=== PATIENT | female | born 1940 | race Caucasian/White ===

== ENCOUNTER → 2023-05-13 13:55 | Outpatient (REF) | payer OTHER, SELFPAY | LOC: RAD 13:55 | PROVIDERS: ATTENDING PHYSICIAN Internal Medicine Critical Care Medicine; FAMILY PHYSICIAN Family Medicine | DX: Z86.718 Personal history of other venous thrombosis and embolism (principal) | CPT/HCPCS: 93970 ==

== ENCOUNTER → 2024-02-03 12:58 | Outpatient (REF) | payer OTHER, SELFPAY | LOC: WDC 12:58 | PROVIDERS: ATTENDING PHYSICIAN Family Medicine | DX: Z12.31 Encounter for screening mammogram for malignant neoplasm of breast (principal); Z78.0 Asymptomatic menopausal state | CPT/HCPCS: 77063; 77067; 77080 ==

== ENCOUNTER → 2024-03-04 10:31 | Outpatient (REF) | payer OTHER, SELFPAY | LOC: HWRAD 10:31 | PROVIDERS: ATTENDING PHYSICIAN Specialist; FAMILY PHYSICIAN Family Medicine | DX: M25.512 Pain in left shoulder (principal) | CPT/HCPCS: 73200 ==

== ENCOUNTER → 2024-03-23 10:11 | Outpatient (REF) | payer OTHER, SELFPAY | LOC: HWRAD 10:11 | PROVIDERS: ATTENDING PHYSICIAN Internal Medicine Critical Care Medicine; FAMILY PHYSICIAN Family Medicine | DX: Z86.718 Personal history of other venous thrombosis and embolism (principal) | CPT/HCPCS: 93970 ==

== ENCOUNTER → 2024-04-04 09:00 | Outpatient (REF) | payer OTHER, SELFPAY ==
[2024-04-04 14:01] LABS: Hematocrit 32.7 % (37.0-47.0); Hemoglobin 10.5 g/dL (12.0-16.0); Mean Corp Hgb Conc. 32.1 g/dL (33.0-37.0); Mean Corpuscular Hgb 27.5 pg (27.0-31.0); Mean Corpuscular Volume 85.6 fL (81.0-99.0); Mean Platelet Volume 12.2 fL (7.4-10.4); Platelet Count 175 10^3/uL (130-400); Red Blood Cell Count 3.82 10^6/uL (4.20-5.40); Red Cell Dist. Width 13.7 % (11.5-14.5); White Blood Cell Count 5.9 10^3/uL (4.8-10.8)
[2024-04-04 14:15] LABS: ALT (SGPT) 58 U/L (0-35); AST (SGOT) 45 U/L (14-36); Albumin 4.1 g/dl (3.5-5.0); Alkaline Phosphatase 46 U/L (38-126); Blood Urea Nitrogen 20 mg/dl (7-17); Calcium 9.4 mg/dl (8.4-10.2); Carbon Dioxide 22 mmol/L (22-30); Chloride 97 mmol/L (98-107); Glucose 207 mg/dl (70-99); Potassium 4.9 mmol/L (3.5-5.1); Sodium 130 mmol/L (135-145); Total Bilirubin 0.3 mg/dl (0.2-1.3); Total Protein 7.8 g/dl (6.3-8.2); eGFR > 60.00
[2024-04-04 14:39] LABS: Glycohemoglobin (HgbA1c) 8.3 % (4.0-5.6)
--- NOTE | 2024-04-05 11:20 | W.PN.UPDATE ---
Update Note
Progress Note Update
HgbA1c 8.3--spoke to patient -she will speak to PCP today at visit re medication adkustments--she will adher to diet control.
Hyponatremia-add salt to diet and fluid restrict-advised
Anemia-improved from baseline.
== END ==
LOC: SDSPAT 09:00
PROVIDERS: ATTENDING PHYSICIAN Specialist; FAMILY PHYSICIAN Family Medicine; OTHER PHYSICIAN Physician Assistant Medical; REFERRING PHYSICIAN Internal Medicine Critical Care Medicine
DX: M25.512 Pain in left shoulder (principal)
CPT/HCPCS: 36415; 80053; 83036; 85027; 86850; 86900; 86901; 87070; 93005

== ENCOUNTER 2024-05-01 01:10 | Emergency (ER) | payer OTHER, SELFPAY ==
[2024-05-01 01:11] VITALS: BP 176/84
[2024-05-01 01:13] VITALS: BP 176/84; BMI 30.3
[2024-05-01 02:00] VITALS: BP 162/65
[2024-05-01 03:44] VITALS: BP 173/77
[2024-05-01 04:00] VITALS: BP 158/71
--- NOTE | 2024-05-01 04:29 | ED.MUSCINJ ---
HPI-Injury
General
Chief Complaint: Fall
Source: patient and ambulance crew
Exam Limitations: none
Time Seen by Provider: 05/01/24 03:35
Nursing documentation reviewed up to this point in time: agreed with
History of Present Illness-Injury
Initial Injury comments:
Pleasant 84-year-old female brought in by EMS from her home after tripping and falling into her sewing machine. She struck the right side of her back as well as her left hip. She was able to ambulate. She currently has no hip pain. She is on
Eliquis but denies any head trauma or loss of consciousness. She states that her low back is the only thing that causes her pain. Denies chest pain or shortness of breath.
Past History
Past History
ED Past Medical History: GERD, HTN, Hypercholesterolemia, NIDDM, Hypothyroidism and Other (Anemia, hyponatremia)
ED Past Surgical History: Gynecological (Hysterectomy), Orthopedic (Bilateral hip and knee replacement, left distal femur fracture repair December 2020) and Urological (Partial nephrectomy 2017)
Social History
Tobacco: Non-smoker
Alcohol: None
Personal:
Living: with family
Employment: Retired
Family History
Family History: Other (Noncontributory)
Skin Exam
Abrasion
Middle Distal Back:
Description of abrasion: superfical/clean
Phy Exam
General Physical Exam
General Presentation: well appearing and mild distress
General age: appears stated age
General Skin: warm
General Habitus: normal
General Mental: alert
General Hydration: appears well hydrated
ENT Exam
ENT Exam: EOMI, pharynx normal, neck supple and normocephalic
Eye Exam
Eye Exam: PERRL, cornea clear and conjunctiva normal
Cardiovascular Exam
Cardiovascular Exam: regular rate/rhythm
Pulmonary Exam
Pulmonary Exam: lungs clear, no respiratory distress, no rales, no crackles, no rhonchi, no stridor, no wheezing and no cough
Gastrointestinal Exam
Gastrointestinal Exam: normal bowel sounds, non tender, soft, no organomegaly, no pulsatile mass and non distended
Neurological Exam
Neurological Exam: alert, oriented x3, no motor deficits and speech normal
Musculoskeletal Exam
Musculoskeletal Exam: full ROM and back pain (Tenderness around the abrasion with some swelling)
Skin Exam
Skin Exam: normal color, warm/dry, no rash and no petechia
Psychiatric Exam
Psychiatric Exam: normal mood/affect
Injury Course
Orders/Labs/Results
Orders:
Orders
05/01/24 02:08
Ribs, Right 3 View W/PA Chest [CR Ribs-right 3 Vw W/pa Chest*] Urgent
Comment:
Reason For Exam: fall
05/01/24 03:45
CT Lumbar Spine W/o Iv Contras Urgent
Comment:
Reason For Exam: fall
*Critical Care Note
Total Time (30-74mins, 75-104mins- exclusive of procedures): Not Applicable
Update Note
Update Note:
CT lumbar spine without IV contrast
IMPRESSION:
No acute osseous trauma. Chronic L1 vertebral body height loss unchanged from prior CT in 2019. Similar chronic height loss of T12. Multilevel degeneration. Bone demineralization.
Finalized at 4:35 AM EST
ED Attending Note
-
Portions of this chart may have been created with voice recognition software.� Occasional wrong word or��sound alike� substitutions may have occurred due to the inherent limitations of voice recognition software.
Discharge Plan
Departure
Patient Disposition: Home (Routine Discharge)
Date of Disposition: 05/01/24
Time of Disposition: 04:49
Patient with high blood pressure during this ER visit?: Yes
Discharge Problem:
Fall, Back pain
Instructions: Preventing falls in adults, How to use an incentive spirometer, BLOOD PRESSURE
Prescriptions:
No Action
levothyroxine [Levoxyl] 125 MCG tablet
125 mcg PO DAILY
omeprazole 20 MG capsule,delayed release(DR/EC)
20 mg PO DAILY
simvastatin 20 MG tablet
20 mg PO QPM
losartan 100 MG tablet
100 mg PO DAILY
metformin 500 MG tablet extended release 24 hr
1,000 mg PO BID Qty: 60 0RF
mupirocin 2 % ointment
1 applic topical BID Qty: 1 0RF
nateglinide 60 mg Tablet
60 mg PO TID
Eliquis 2.5 mg Tablet
2.5 mg PO BID
nitrofurantoin 100 mg Capsule
100 mg PO DAILY
doxycycline hyclate 100 mg capsule
100 mg PO BID Qty: 10 0RF
Rx Instructions:
Take with probiotic--POST-OP
tramadol 50 mg tablet
50 mg PO Q6H PRN (Reason: 1 tab moderate pain, 2 if severe) Qty: 30 0RF
Rx Instructions:
ongoing therapy
gabapentin 300 mg capsule
300 mg PO HS Qty: 10 0RF
Referrals:
Inna Baires MD [Family Provider] -
Activity Restrictions/Additional Instructions:
Tylenol or Motrin for pain
It was a pleasure meeting you and taking part in your care. We hope for your continued healing and wellness.
Please read discharge instructions in their entirety. However, they are for general education and may not describe your exact diagnosis at discharge. Information on your ER visit and medical conditions were discussed with you along with appropriate
follow up information...
If indicated, please take your medications as instructed and indicated on discharge paperwork.
Please schedule a follow up appointment as directed. Call to schedule an appointment
Please return to the emergency department with ANY change in, persisting, or worsening of symptoms. If any of your symptoms do not improve, or persist, or become more severe within 6-12 hours, please return to the emergency department for further
care.
Please return to the emergency department if you develop a headache, neck pain/stiffness, fever greater than 100.4F, chest pain, shortness of breath, persistent nausea, vomiting, slurred speech, difficulty walking, numbness/tingling, weakness, signs
of infection or any other symptoms that are worrisome to you.
If you have any questions or concerns please do not hesitate to call the Hospital at or E-mail me directly at [email or web address]
Interventions
Interventions:
*Risk Screen - Suicide Last Done: 05/01/24 01:13
*General Assessment Last Done: 05/01/24 01:13
*Neglect/Abuse Screening Last Done: 05/01/24 01:13
ED- Fall Risk Assessment Last Done: 05/01/24 02:00
*ED COVID-19 Vaccine History Last Done: 05/01/24 01:13
ED-Musculoskeletal Assessment Last Done: 05/01/24 02:00
ED- Neurological Assessment Last Done: 05/01/24 02:00
ED-Skin Assessment Last Done: 05/01/24 02:00
Discharge Date and Time
Print Language: [id number]
== END 2024-05-01 07:11 | disposition home or self-care (01) ==
LOC: EMR 01:10
PROVIDERS: EMERGENCY PHYSICIAN Student in an Organized Health Care Education/Training Program; FAMILY PHYSICIAN Family Medicine
DX: S30.810A Abrasion of lower back and pelvis, initial encounter (principal); W01.198A Fall on same level from slipping, tripping and stumbling with subsequent striking against other object, initial encounter; I10 Essential (primary) hypertension; E78.00 Pure hypercholesterolemia, unspecified; K21.9 Gastro-esophageal reflux disease without esophagitis; E11.9 Type 2 diabetes mellitus without complications; E03.9 Hypothyroidism, unspecified; Z79.01 Long term (current) use of anticoagulants; Z90.5 Acquired absence of kidney; Z90.710 Acquired absence of both cervix and uterus; Z96.643 Presence of artificial hip joint, bilateral
CPT/HCPCS: 99284; 71101; 72131

== ENCOUNTER → 2024-07-22 07:49 | Outpatient (REF) | payer OTHER, SELFPAY | LOC: HWRCS 07:49 | PROVIDERS: ATTENDING PHYSICIAN Internal Medicine; FAMILY PHYSICIAN Family Medicine | DX: Z01.810 Encounter for preprocedural cardiovascular examination (principal); I49.3 Ventricular premature depolarization; I10 Essential (primary) hypertension; E78.2 Mixed hyperlipidemia | CPT/HCPCS: 78452; 93017; A9500; J2785 ==

== ENCOUNTER → 2024-07-29 13:16 | Outpatient (REF) | payer OTHER, SELFPAY | LOC: RCS 13:16 | PROVIDERS: ATTENDING PHYSICIAN Internal Medicine; FAMILY PHYSICIAN Family Medicine | DX: Z01.810 Encounter for preprocedural cardiovascular examination (principal); I49.3 Ventricular premature depolarization; I10 Essential (primary) hypertension; E78.2 Mixed hyperlipidemia; I08.3 Combined rheumatic disorders of mitral, aortic and tricuspid valves; I47.19 Other supraventricular tachycardia; I47.20 Ventricular tachycardia, unspecified; I70.0 Atherosclerosis of aorta | CPT/HCPCS: 93225; 93226; 93306 ==

== ENCOUNTER → 2024-09-01 10:44 | Outpatient (REF) | payer OTHER, SELFPAY | LOC: RAD 10:44 | PROVIDERS: ATTENDING PHYSICIAN Family Medicine | DX: E87.1 Hypo-osmolality and hyponatremia (principal) | CPT/HCPCS: 71046 ==

== ENCOUNTER → 2024-10-24 11:19 | Outpatient (REF) | payer OTHER, SELFPAY | LOC: RAD 11:19 | PROVIDERS: ATTENDING PHYSICIAN Internal Medicine Critical Care Medicine; FAMILY PHYSICIAN Family Medicine | DX: I82.409 Acute embolism and thrombosis of unspecified deep veins of unspecified lower extremity (principal) | CPT/HCPCS: 93970 ==

== ENCOUNTER → 2025-03-01 12:33 | Outpatient (REF) | payer OTHER, SELFPAY | LOC: WDC 12:33 | PROVIDERS: ATTENDING PHYSICIAN Family Medicine | DX: Z12.31 Encounter for screening mammogram for malignant neoplasm of breast (principal) | CPT/HCPCS: 77063; 77067 ==